=== PATIENT | female | born 1950 | race Asian ===

== ENCOUNTER 2022-03-04 13:49 | Outpatient (CLI) | payer OTHER ==
[~2022-03-04] VITALS: Ht 167.6 cm; Wt 83.9 kg
[~2022-03-04 13:49] MED LIST: AMLO2.5T PO; LISI10TA11 PO; METOPROLOL25 M1 OR; PANT40TA PO
[2022-03-04 16:30] VITALS: BP 144/74; TEMP 98.5
== END 2022-03-04 19:28 | disposition home or self-care (01) ==
LOC: INF 13:49
PROVIDERS: ATTEND Family Medicine
DX: Z23 Encounter for immunization (principal); U07.1 COVID-19
CPT/HCPCS: 96374; Q0222